=== PATIENT | female | born 1995 | race Two or more races ===

== ENCOUNTER 2020-10-04 17:02 | Emergency (ER) | payer MEDICAID ==
[~2020-10-04] VITALS: Ht 157.5 cm; Wt 49.9 kg
--- NOTE | 2020-10-04 17:22 | NUR ---
TRIAGE: PATIENT ARRIVES WITH ONE WEEK DIARRHEA, N/V ONE WEEK, DIZZINESS AND TODAY REPORTS AN UNWITNESSED SYNCOPAL EPISODE AT HOME.
[2020-10-04 18:52] LABS: MICROSCOPIC INDICATED
[2020-10-04 19:02] LABS: BASOPHILS % (AUTO) 0 % (0-1); EOSINOPHILS % (AUTO) 0 % (1-7); LYMPHOCYTES % (AUTO) 19 % (22-44); MEAN CORPUSCULAR HEMOGLOBIN 32.2 pg (27.0-34.8); MEAN CORPUSCULAR HGB CONC 33.9 g/dL (32.4-35.8); MEAN PLATELET VOLUME 7.7 fL (7.4-10.4); MONOCYTES % (AUTO) 7 % (2-9); NEUTROPHILS % (AUTO) 74 % (42-75); PLATELET COUNT 280 x10^3/uL (130-400); RED CELL DISTRIBUTION WIDTH 12.7 % (9.6-15.2)
[2020-10-04 19:12] LABS: ANION GAP 4 mmol/L (5-15); CALCIUM 8.8 mg/dL (8.5-10.1); CHLORIDE 107 mmol/L (98-107)
[2020-10-04 19:14] LABS: MD NO
[2020-10-04 19:30] LABS: CREATININE 0.51 mg/dL (0.55-1.02)
[2020-10-04 23:00] VITALS: BP 121/71
== END 2020-10-04 23:02 | disposition home or self-care (01) ==
LOC: EDBD 17:02 → ED 17:32
DX: O46.91 Antepartum hemorrhage, unspecified, first trimester (principal); R94.31 Abnormal electrocardiogram [ECG] [EKG]; R11.2 Nausea with vomiting, unspecified; R19.7 Diarrhea, unspecified; Z3A.01 Less than 8 weeks gestation of pregnancy
CPT/HCPCS: 36415; 76801; 80048; 81001; 84703; 85025; 93005; 99285